=== PATIENT | male | born 1970 | race Caucasian/White ===

== ENCOUNTER 2017-05-14 17:26 | Emergency (ER) | payer BC ==
[~2017-05-14] VITALS: Ht 177.8 cm; Wt 93.9 kg
[~2017-05-14 17:26] MED LIST: CYMBALTA60 M1 PO; ECO81 PO; HYDROCHLOROTHIA25 MG PO; LAMOTRIGINE100 M1 PO; METOPROLOL SUC100 M2 PO; ROBAXIN500 MG PO; TRILEPTAL600 MG PO; WELLBUTRIN SR200 MG PO; ZESTRIL20 MG PO; ZOC20 PO
[2017-05-14 17:27] VITALS: Ht 177.8 cm; Wt 93.9 kg
[2017-05-14 18:08] LABS: BASOPHIL % 0.5 % (0-2); PLATELET COUNT 291 x10^3mcL (130-400); RED CELL DISTRIBUTION WIDTH 12.3 % (11.5-14.5)
[2017-05-14 18:21] LABS: CALCIUM 9.2 mg/dL (8.5-10.1); CARBON DIOXIDE 30.1 mmol/L (21-32); CHLORIDE SERUM 100 mmol/L (98-107); CREATININE SERUM 1.1 mg/dL (0.7-1.3); GFR1 > 60 mL/min; GLUCOSE SERUM 96 mg/dL (74-106); POTASSIUM SERUM 4.6 mmol/L (3.5-5.1); SODIUM SERUM 137 mmol/L (136-145)
[2017-05-14 18:24] LABS: ALBUMIN 4.2 g/dL (3.4-5.0); ALKALINE PHOSPHATASE 92 U/L (46-116); ALT/SGPT 24 U/L (16-63); AST/SGOT 15 U/L (15-37); CHOLESTEROL 153 mg/dL (<200); HDL CHOLESTEROL 52 mg/dL (40-60); TOTAL PROTEIN, SERUM 7.7 g/dL (6.4-8.2)
[2017-05-15 00:27] VITALS: BP 120/78
== END 2017-05-15 00:27 | disposition home or self-care (01) ==
LOC: ED 17:26
PROVIDERS: Emergency Medicine
DX: R07.89 Other chest pain (principal); F17.200 Nicotine dependence, unspecified, uncomplicated; I10 Essential (primary) hypertension; G89.29 Other chronic pain; M54.9 Dorsalgia, unspecified; Z71.6 Tobacco abuse counseling; Z88.8 Allergy status to other drugs, medicaments and biological substances; Z86.73 Personal history of transient ischemic attack (TIA), and cerebral infarction without residual deficits
CPT/HCPCS: 36415; 83880; 99406; Q9967

== ENCOUNTER 2019-01-22 02:47 | Emergency (ER) | payer BC ==
[~2019-01-22] VITALS: Ht 177.8 cm; Wt 95.0 kg
[2019-01-22 03:28] LABS: BASOPHIL % 0.6 % (0-2); PLATELET COUNT 264 x10^3mcL (130-400); RED CELL DISTRIBUTION WIDTH 13.8 % (11.5-14.5)
[2019-01-22 03:36] LABS: CALCIUM 8.7 mg/dL (8.5-10.1); CARBON DIOXIDE 34.1 mmol/L (21-32); CHLORIDE SERUM 97 mmol/L (98-107); CREATININE SERUM 0.9 mg/dL (0.7-1.3); GFR1 > 60 mL/min; GLUCOSE SERUM 92 mg/dL (74-106); POTASSIUM SERUM 4.3 mmol/L (3.5-5.1); SODIUM SERUM 135 mmol/L (136-145)
[2019-01-22 03:46] LABS: ALBUMIN 4.1 g/dL (3.4-5.0); ALKALINE PHOSPHATASE 77 U/L (46-116); ALT/SGPT 24 U/L (16-63); AST/SGOT 20 U/L (15-37); BILIRUBIN TOTAL 0.17 mg/dL (0.20-1.00); TOTAL PROTEIN, SERUM 7.5 g/dL (6.4-8.2)
[2019-01-22 04:05] VITALS: BP 111/75
== END 2019-01-22 04:05 | disposition home or self-care (01) ==
LOC: ED 02:47
PROVIDERS: Emergency Medicine
DX: R42 Dizziness and giddiness (principal); R07.89 Other chest pain; R47.81 Slurred speech; I10 Essential (primary) hypertension; G89.29 Other chronic pain; M54.9 Dorsalgia, unspecified; Z88.8 Allergy status to other drugs, medicaments and biological substances
CPT/HCPCS: 36415; Q0092